=== PATIENT | male | born 1960 | race Caucasian/White ===

== ENCOUNTER 2018-12-20 12:07 | Inpatient (IN) | payer MEDICARE ==
[~2018-12-20] VITALS: Ht 185.4 cm; Wt 93.4 kg
[~2018-12-20 12:07] MED LIST: ASEN5TAB6 SL
[2018-12-20] MEDS ORDERED: LORazepam 2 MG TABLET PO PRN (16:00)
[2018-12-20] MEDS ORDERED: HALOPERIDOL 5 MG TABLET PO PRN (16:00)
[2018-12-20 16:19] VITALS: BP 138/84
[2018-12-20] MEDS ORDERED: MAG HYDROX/AL HYDROX/SIMETH ES 30 ML SUSPENSION UDCUP PO PRN (17:00)
[2018-12-20] MEDS ORDERED: NICOTINE 14 MG/24 HOUR PATCH TD PRN (17:00)
[2018-12-20] MEDS ORDERED: PETROLATUM,WHITE 71 GM JELLY TP PRN (17:00)
[2018-12-20] MEDS ORDERED: DOCUSATE SODIUM 100 MG CAPSULE PO PRN (17:00)
[2018-12-20] MEDS ORDERED: IBUPROFEN 400 MG TABLET PO PRN (17:00)
[2018-12-20] MEDS ORDERED: GuaiFENesin/D-METHORPHAN [SUGAR-FREE] 200-20MG/10 ML SYRUP UDCUP PO PRN (17:00)
[2018-12-20] MEDS ORDERED: ACETAMINOPHEN 325 MG TABLET PO PRN (17:00)
[2018-12-20] MEDS ORDERED: LOPERAMIDE HCL 2 MG CAPSULE PO PRN (17:00)
[2018-12-20] MEDS ORDERED: ONDANSETRON HCL 4 MG TABLET PO PRN (17:00)
[2018-12-20] MEDS ORDERED: ALBUTEROL SULFATE HFA 90 MCG/PUFF 8 GM INHALER IH PRN (17:00)
[2018-12-20] MEDS ORDERED: CloNIDine HCL 0.1 MG TABLET PO PRN (17:00)
[2018-12-20] MEDS ORDERED: MAGNESIUM HYDROXIDE SUSPENSION 30 ML UDCUP PO PRN (17:00)
[2018-12-21 05:49] VITALS: BP 126/82
[2018-12-21 08:25] VITALS: BP 140/67
[2018-12-21] MEDS: QUEtiapine FUMARATE 300 MG TABLET PO SCH ×2 (14:43→20:04)
[2018-12-21] MEDS: DIVALPROEX SODIUM 500 MG DR TABLET PO SCH ×2 (14:44→20:04)
[2018-12-21 16:03] VITALS: BP 103/55
[2018-12-22 00:20] VITALS: BP 128/82
[2018-12-22 04:49] LABS: GLUCOMETER DEV NAME(LOC) BV3N.; GLUCOSE,POINT OF CARE 121 MG/DL (70-110)
[2018-12-22 08:31] LABS: BASOPHILS % (AUTO) 0.8 % (0.0-2.0); EOSINOPHILS % (AUTO) 6.3 % (1.0-6.0); HEMATOCRIT 44.6 % (41-53); HEMOGLOBIN 14.9 g/dL (13.5-17.5); LYMPHOCYTES # (AUTO) 2.1 K/uL (1.0-4.8); LYMPHOCYTES % (AUTO) 34.8 % (22.0-44.0); MEAN CORPUSCULAR HEMOGLOBIN 33.6 pg (26.0-34.0); MEAN CORPUSCULAR HGB CONC 33.5 G/dL (31.0-37.0); MEAN CORPUSCULAR VOLUME 100 fL (80-100); MONOCYTES # (AUTO) 0.6 K/uL (0.1-1.0); MONOCYTES % (AUTO) 10.6 % (2.0-9.0); NEUTROPHILS # (AUTO) 2.8 K/uL (1.8-7.7); NEUTROPHILS % (AUTO) 47.5 % (40.0-70.0); PLATELET COUNT (AUTO) 227 K/uL (150-450); RED BLOOD CELL COUNT(AUTO) 4.45 MIL/uL (4.50-5.90); RED CELL DISTRIBUTION WIDTH 11.8 % (11.5-14.5)
[2018-12-22 08:38] VITALS: BP 120/60
[2018-12-22 08:54] LABS: HEMOGLOBIN A1C 5.3 % (4.5-6.2)
[2018-12-22 09:32] LABS: BILIRUBIN,TOTAL 0.2 mg/dL (0.1-1.0); CALCIUM, TOTAL 10.1 mg/dL (8.8-10.5); CHOL/HDL RATIO 4.1 (4.2-7.3); CREATININE 1.47 mg/dL (0.60-1.30); FREE T4 (FREE THYROXINE) 1.18 ng/dL (0.76-1.46); POTASSIUM 4.7 mmol/L (3.5-5.1); THYROID STIMULATING HORMONE 0.8 uIU/mL (0.36-3.74); TOTAL PROTEIN, SERUM 6.5 g/dL (6.4-8.2)
[2018-12-22] MEDS: DIVALPROEX SODIUM 500 MG DR TABLET PO SCH ×2 (09:39→21:09)
[2018-12-22] MEDS: QUEtiapine FUMARATE 300 MG TABLET PO SCH ×2 (09:39→21:08)
[2018-12-22 13:53] LABS: GLUCOMETER DEV NAME(LOC) BV3N.; GLUCOSE,POINT OF CARE 97 MG/DL (70-110)
[2018-12-22 16:00] VITALS: BP 121/72
[2018-12-22] MEDS: ZOLPIDEM TARTRATE 10 MG TABLET PO PRN (21:09)
[2018-12-22 21:29] LABS: GLUCOMETER DEV NAME(LOC) BV3N.; GLUCOSE,POINT OF CARE 89 MG/DL (70-110)
[2018-12-23 04:40] VITALS: BP 139/88
[2018-12-23 05:55] LABS: GLUCOMETER DEV NAME(LOC) BV3N.; GLUCOSE,POINT OF CARE 88 MG/DL (70-110)
[2018-12-23] MEDS: DIVALPROEX SODIUM 500 MG DR TABLET PO SCH ×2 (08:07→20:24)
[2018-12-23] MEDS: QUEtiapine FUMARATE 300 MG TABLET PO SCH ×2 (08:07→20:24)
[2018-12-23 09:00] VITALS: BP 126/65
[2018-12-23 11:13] LABS: GLUCOMETER DEV NAME(LOC) BV3N.; GLUCOSE,POINT OF CARE 88 MG/DL (70-110)
[2018-12-23 16:06] VITALS: BP 119/75
[2018-12-23 16:38] LABS: GLUCOMETER DEV NAME(LOC) BV3N.; GLUCOSE,POINT OF CARE 100 MG/DL (70-110)
[2018-12-23] MEDS: ZOLPIDEM TARTRATE 10 MG TABLET PO PRN (20:24)
[2018-12-23 20:33] LABS: GLUCOMETER DEV NAME(LOC) BV3N.; GLUCOSE,POINT OF CARE 114 MG/DL (70-110)
[2018-12-24 01:10] VITALS: BP 124/82
[2018-12-24 06:14] LABS: GLUCOMETER DEV NAME(LOC) BV3N.; GLUCOSE,POINT OF CARE 85 MG/DL (70-110)
[2018-12-24] MEDS: DIVALPROEX SODIUM 500 MG DR TABLET PO SCH ×2 (08:16→21:12)
[2018-12-24] MEDS: QUEtiapine FUMARATE 300 MG TABLET PO SCH ×2 (08:16→21:12)
[2018-12-24 08:41] VITALS: BP 116/69
[2018-12-24 12:19] LABS: GLUCOMETER DEV NAME(LOC) BV3N.; GLUCOSE,POINT OF CARE 104 MG/DL (70-110)
[2018-12-24 16:00] VITALS: BP 131/73
[2018-12-24] MEDS: ZOLPIDEM TARTRATE 10 MG TABLET PO PRN (21:12)
[2018-12-25 06:19] VITALS: BP 128/77
[2018-12-25 06:24] LABS: GLUCOMETER DEV NAME(LOC) BV3N.; GLUCOSE,POINT OF CARE 84 MG/DL (70-110)
[2018-12-25 08:07] VITALS: BP 119/77
[2018-12-25] MEDS: QUEtiapine FUMARATE 300 MG TABLET PO SCH ×2 (08:32→20:41)
[2018-12-25] MEDS: DIVALPROEX SODIUM 500 MG DR TABLET PO SCH ×2 (08:32→20:41)
[2018-12-25 11:18] LABS: GLUCOMETER DEV NAME(LOC) BV3N.; GLUCOSE,POINT OF CARE 200 MG/DL (70-110)
[2018-12-25 11:29] LABS: GLUCOMETER DEV NAME(LOC) BV3N.; GLUCOSE,POINT OF CARE 81 MG/DL (70-110)
[2018-12-25 16:10] VITALS: BP 123/88
[2018-12-25 17:09] LABS: GLUCOMETER DEV NAME(LOC) BV3N.; GLUCOSE,POINT OF CARE 98 MG/DL (70-110)
[2018-12-25] MEDS: ZOLPIDEM TARTRATE 10 MG TABLET PO PRN (20:41)
[2018-12-26 02:02] VITALS: BP 117/69
[2018-12-26 06:19] LABS: GLUCOMETER DEV NAME(LOC) BV3N.; GLUCOSE,POINT OF CARE 72 MG/DL (70-110)
[2018-12-26] MEDS: DIVALPROEX SODIUM 500 MG DR TABLET PO SCH (08:13)
[2018-12-26] MEDS: QUEtiapine FUMARATE 300 MG TABLET PO SCH (08:13)
[2018-12-26] MEDS ORDERED: QUET300T18 PO (09:00)
[2018-12-26] MEDS ORDERED: DIVA-78 PO ×4 (09:00→11:43)
[2018-12-26] MEDS ORDERED: QUET200T PO (11:43)
== END 2018-12-26 17:05 | disposition home or self-care (01) | DRG 885 ==
LOC: B3A 16:00
DX: F25.1 Schizoaffective disorder, depressive type (principal); N18.6 End stage renal disease; F15.20 Other stimulant dependence, uncomplicated; I12.0 Hypertensive chronic kidney disease with stage 5 chronic kidney disease or end stage renal disease; E78.5 Hyperlipidemia, unspecified; E11.22 Type 2 diabetes mellitus with diabetic chronic kidney disease; E03.9 Hypothyroidism, unspecified; F19.10 Other psychoactive substance abuse, uncomplicated; R45.87 Impulsiveness; F12.20 Cannabis dependence, uncomplicated; Z91.5 Personal history of self-harm; Z79.899 Other long term (current) drug therapy; Z71.51 Drug abuse counseling and surveillance of drug abuser; Z28.21 Immunization not carried out because of patient refusal
CPT/HCPCS: 83036; 84439; 84443